=== PATIENT | female | born 1970 | race Caucasian/White ===

== ENCOUNTER → 2024-03-20 13:56 | Outpatient (REF) | payer MEDICARE, OTHER, SELFPAY | LOC: RAD 13:56 | PROVIDERS: ATTENDING PHYSICIAN Specialist | DX: M51.34 Other intervertebral disc degeneration, thoracic region (principal); G91.2 (Idiopathic) normal pressure hydrocephalus | CPT/HCPCS: 72072; 72100 ==

== ENCOUNTER → 2024-03-21 07:34 | Outpatient (REF) | payer MEDICARE, OTHER, SELFPAY | LOC: PAVMRI 07:34 | PROVIDERS: ATTENDING PHYSICIAN Specialist; FAMILY PHYSICIAN Physician Assistant Medical | DX: M54.16 Radiculopathy, lumbar region (principal) | CPT/HCPCS: 72148 ==